=== PATIENT | female | born 1995 | race American Indian/Alaskan Native ===

== ENCOUNTER 2021-05-15 17:58 | Emergency (ER) | payer SELFPAY ==
--- NOTE | 2021-05-15 20:58 | XRay Report ---
CHEST 2 VIEWS INDICATION / CLINICAL INFORMATION: chest pain. COMPARISON: None available. FINDINGS: SUPPORT DEVICES: None. HEART / MEDIASTINUM: No significant abnormality. LUNGS / PLEURA: No significant pulmonary or pleural abnormality. No pneumothorax. ADDITIONAL FINDINGS: No significant additional findings. IMPRESSION: 1. No acute findings. Signer Name: Wilian Perkins MD Signed: 05/15/2021 8:54 PM Workstation Name: [id number]
[2021-05-15] MEDS ORDERED: IBUPROFEN 600 MG TAB PO ONE (21:26)
[2021-05-15 21:56] LABS: Hematocrit 39.2 % (30.3-42.9); Mean Corpuscular HGB Conc 33 % (30-34); Mean Corpuscular Volume 86 fl (79-97); Platelet Count 251 K/mm3 (140-440); Red Blood Count 4.56 M/mm3 (3.65-5.03); Red Cell Distribution Width 13.3 % (13.2-15.2)
[2021-05-15 22:16] LABS: Alanine Aminotransferase 59 units/L (7-56); Albumin 4.2 g/dL (3.9-5); Blood Urea Nitrogen 8 mg/dL (7-17); Calcium 9.2 mg/dL (8.4-10.2); Hemolysis Index 13
[2021-05-15 22:19] LABS: BUN/Creatinine Ratio 13
[2021-05-15 22:40] LABS: RBC Morphology Normal; Total Cells Counted 100
[2021-05-15 22:45] VITALS: BP 104/69
--- NOTE | 2021-05-15 22:47 | Emergency Department Report ---
ED Chest Pain HPI - General Chief Complaint: Chest Pain Stated Complaint: LT SIDE PAIN Source: patient Mode of arrival: Ambulatory Limitations: No Limitations - History of Present Illness Initial Comments: Patient is a nulliparous 25-year-old female with past medical history of asthma who presents to the ED with persistent diffuse chest wall pain that radiates to the left chest intermittently for the last 3 months, worse in the last 1 week. Patient states that the pain in the chest is worse with movement or heavy lifting or palpation of her left chest. 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 Patient denies dizziness, syncope, nausea, vomiting, shortness of breath, fever, chills, cough, fall, traumatic injury, diaphoresis, abdominal pain, headache, neck pain, back pain, hemoptysis, hematemesis, numbness and tingling or weakness of upper and lower extremities bilaterally. MD Complaint: chest pain (Diffuse chest wall pain with movement) -: Gradual, month(s) (3) Onset: during exertion, awoke with symptoms Pain Location: substernal, left chest Pain Radiation: none Severity: severe Severity scale (0 -10): 7 Quality: aching, sharp Consistency: intermittent Improves With: rest Worsens With: palpation, movement Context: other (Heavy lifting at work) re: denies: nausea, vomting, diaphoresis, dyspnea, sense of impending doom Other Symptoms: denies: cough, fever, syncope, rash, acid taste in mouth, leg swelling, palpitations, burping Treatments Prior to Arrival: none Aspirin use within the Past 7 Days: (0) No - Related Data On Oral Contraceptives: No Previous Rx's Medication Instructions Recorded Last Taken Type Nitrofurantoin Monohyd/M-Cryst 100 mg PO BID #14 capsule 10/08/18 Unknown Rx [Macrobid 100 mg Capsule] Baclofen [Lioresal] 10 mg PO Q12H PRN #24 tab 05/15/21 Unknown Rx Naproxen [Naprosyn] 500 mg PO BID PRN #30 tablet 05/15/21 Unknown Rx Allergies Allergy/AdvReac Type Severity Reaction Status Date / Time No Known Allergies Allergy Unverified 10/07/18 20:44 Heart Score - HEART Score History: Slightly suspicious EKG: Normal Age: < 45 Risk factors: No known risk factors Troponin: < normal limit HEART Score: 0 - EKG Read Time Time EKG Completed: 20:01 EKG Read Time: 20:07 - Critical Actions Critical Actions: 0-3 pts:0.9-1.7%risk of adverse cardiac event.Candidate for discharge ED Review of Systems ROS: Stated complaint: LT SIDE PAIN Other details as noted in HPI Constitutional: denies: chills, fever Eyes: denies: eye pain, eye discharge, vision change ENT: denies: ear pain, throat pain Respiratory: denies: cough, shortness of breath, wheezing Cardiovascular: chest pain (Chest wall pain). denies: palpitations Endocrine: no symptoms reported Gastrointestinal: denies: abdominal pain, nausea, vomiting, diarrhea Genitourinary: denies: urgency, dysuria, discharge Musculoskeletal: denies: back pain, joint swelling, arthralgia Skin: denies: rash, lesions Neurological: denies: headache, weakness, paresthesias Psychiatric: denies: anxiety, depression Hematological/Lymphatic: denies: easy bleeding, easy bruising ED Past Medical Hx - Past Medical History Previous Medical History?: Yes Hx Asthma: Yes - Surgical History Past Surgical History?: No - Social History Smoking Status: Never Smoker Substance Use Type: None - Medications Home Medications: Home Medications Medication Instructions Recorded Confirmed Last Taken Type Nitrofurantoin Monohyd/M-Cryst 100 mg PO BID #14 capsule 10/08/18 Unknown Rx [Macrobid 100 mg Capsule] Baclofen [Lioresal] 10 mg PO Q12H PRN #24 tab 05/15/21 Unknown Rx Naproxen [Naprosyn] 500 mg PO BID PRN #30 tablet 05/15/21 Unknown Rx ED Physical Exam - General Limitations: No Limitations General appearance: alert, in no apparent distress - Head Head exam: Present: atraumatic, normocephalic, normal inspection - Eye Eye exam: Present: normal appearance, PERRL, EOMI Pupils: Present: normal accommodation - ENT ENT exam: Present: normal exam, normal orophraynx, mucous membranes moist, TM's normal bilaterally, normal external ear exam - Neck Neck exam: Present: normal inspection, full ROM - Respiratory Respiratory exam: Present: normal lung sounds bilaterally, chest wall tenderness (Palpable reproducible diffuse anterior chest wall tenderness). Absent: respiratory distress - Cardiovascular Cardiovascular Exam: Present: regular rate, normal rhythm, normal heart sounds. Absent: systolic murmur, diastolic murmur, rubs, gallop - GI/Abdominal GI/Abdominal exam: Present: soft, normal bowel sounds. Absent: tenderness, guarding, rebound, hyperactive bowel sounds, hypoactive bowel sounds - Extremities Exam Extremities exam: Present: normal inspection, full ROM, normal capillary refill - Back Exam Back exam: Present: normal inspection, full ROM. Absent: tenderness, CVA tenderness (R), CVA tenderness (L), muscle spasm, paraspinal tenderness - Neurological Exam Neurological exam: Present: alert, oriented X3, CN II-XII intact, normal gait, reflexes normal - Psychiatric Psychiatric exam: Present: normal affect, normal mood - Skin Skin exam: Present: warm, dry, intact, normal color. Absent: rash JUSTIN score - Justin Score Age > 65: (0) No Aspirin use within the Past 7 Days: (0) No 3 or more CAD Risk Factors: (0) No 2 or more Angina events in past 24 hrs: (0) No Known CAD with more than 50% Stenosis: (0) No Elevated Cardiac Markers: (0) No ST Deviation Greater than 0.5mm: (0) No JUSTIN Score: 0 ED Medical Decision Making - Lab Data Result diagrams: 05/15/21 21:31 05/15/21 21:31 - Radiology Data Radiology results: report reviewed, [place] [id number] XRay Report Signed Patient: CHELSEA ANGLIN MR#: [id number] : 1995 Acct:[id number] Age/Sex: 25 / F ADM Date: 05/15/21 Loc: ED Attending Dr: Ordering Physician: KEENA VICTORIA MD Date of Service: 05/15/21 Procedure(s): XR chest 1V ap Accession Number(s): [id number] cc: ED MD JULIEN Fluoro Time In Minutes: CHEST 2 VIEWS INDICATION / CLINICAL INFORMATION: chest pain. COMPARISON: None available. FINDINGS: SUPPORT DEVICES: None. HEART / MEDIASTINUM: No significant abnormality. LUNGS / PLEURA: No significant pulmonary or pleural abnormality. No pneumothorax. ADDITIONAL FINDINGS: No significant additional findings. IMPRESSION: 1. No acute findings. Signer Name: Wilian Perkins MD Signed: 05/15/2021 8:54 PM Workstation Name: [id number] Transcribed By: TL Dictated By: Wilian ePrkins MD Electronically Authenticated By: Wilian Perkins MD Signed Date/Time: 05/15/212053 DD/ 53 TD/TT: - Medical Decision Making This is a nulliparous 25-year-old female with past medical history of asthma who presents to the ED with persistent diffuse chest wall pain that radiates to the left chest intermittently for the last 3 months, worse in the last 1 week. Patient states that the pain in the chest is worse with movement or heavy lifting or palpation of her left chest. 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 In the ED, patient is alert and oriented x3 and is not in any distress. Patient is hemodynamically stable. Chest x-ray shows no acute cardiopulmonary abnormalities or pneumonitis. Patient's heart score is 0, and patient is PERC negative per Wells criteria and patient has no risk factors for PE as she is not on any control. EKG shows normal sinus rhythm with a ventricular rate of [address] or T wave abnormalities. Patient does not smoke or use any drugs. Based on the history and physical exam findings, patient symptoms are likely musculoskeletal or due to chronic costochondritis. Patient was therefore discharged home on pain medications and advised to follow-up with her primary care physician in 5 to 7 days for reevalu ation or return to the ED immediately if symptoms get worse. - Differential Diagnosis Costochondritis; muscle strain; ACS; PE; pneumonia; Critical care attestation.: If time is entered above; I have spent that time in minutes in the direct care of this critically ill patient, excluding procedure time. ED Disposition Clinical Impression: Acute costochondritis, Muscle strain of anterior chest wall, Acute nonspecific chest pain with low risk of coronary artery disease Disposition: 01 HOME / SELF CARE / HOMELESS Is pt being admited?: No Does the pt Need Aspirin: No Condition: Stable Instructions: Chest Pain (ED), Costochondritis, [id number], Muscle Strain, [id number], Nonspecific Chest Pain, Adult, [id number] Additional Instructions: All lab test results were reviewed and are all nonactionable. Chest x-ray shows no acute cardiopulmonary abnormalities or pneumonitis. EKG shows normal sinus rhythm with no acute abnormalities. Therefore your symptoms are likely due to musculoskeletal muscle strain or inflammation of the chest wall as a result of persistent heavy lifting at work. Therefore take medications with food, drink plenty of fluids and follow-up with your primary care physician in 5 to 7 days for reevaluation. Return to the ED immediately if symptoms get worse. Prescriptions: Baclofen [Lioresal] 10 mg PO Q12H PRN #24 tab PRN Reason: Muscle Spasm Naproxen [Naprosyn] 500 mg PO BID PRN #30 tablet PRN Reason: pain Referrals: [facility] [Provider Group] - 3-5 Days Forms: Work/School Release Form(ED) Time of Disposition: 22:48 Print Language: ANGUILLAN
--- NOTE | 2021-05-16 09:22 | Electrocardiograph Report ---
[facility] Test Date: 2021-05-15 Test Time: 20:01:24 Pat Name: CHELSEA ANGLIN Department: Room: Gender: F Milker Machine: MART : 1995 Requested By: CARLEE SANDOVAL Order Number: [id number] Reading MD: Juan Diego Luna Measurements Intervals [place] Rate: 81 P: 44 OH: 136 QRS: 75 QRSD: 71 T: 50 QT: 412 QTc: 478 Interpretive Statements Sinus rhythm No previous ECG available for comparison Electronically Signed On 05-16-2021 9:21:56 EDT by Juan Diego Luna
== END 2021-05-16 01:40 | disposition home or self-care (01) ==
LOC: ED 17:58
DX: S29.011A Strain of muscle and tendon of front wall of thorax, initial encounter (principal); R07.89 Other chest pain; M94.0 Chondrocostal junction syndrome [Tietze]; J45.909 Unspecified asthma, uncomplicated; Z79.899 Other long term (current) drug therapy; X50.0XXA Overexertion from strenuous movement or load, initial encounter; Y93.89 Activity, other specified; Y92.89 Other specified places as the place of occurrence of the external cause; Y99.8 Other external cause status
CPT/HCPCS: 36415; 71045; 71046; 80053; 84484; 85007; 85025; 93005